=== PATIENT | female | born 1990 | race Two or more races ===

== ENCOUNTER 2021-10-21 16:37 | Outpatient (CLI) | payer OTHER, SELFPAY ==
--- NOTE | ~2021-10-21 | US_ITS ---
EXAMINATION: US OB /maternal detail DATE: 10/21/2021 17:51 INDICATION: anatomic survey. TECHNIQUE: Real-time ultrasound of the pelvis was performed. COMPARISON: None. FINDINGS: There is a single living fetus in vertex presentation. The placenta is posterior. heart rate i s 139 beats per minute (bpm). The amniotic fluid volume is subjectively normal. The following biometric data were obtained: Biparietal diameter (BPD): 6.0 cm; head circumference (HC): 22.6 cm; abdominal circumference (AC): 19 .0 cm; femur length (FL): 4.4 cm. These measurements are concordant. Estimated weight is 669 g +/- 100 g, which correlates with the 24th percentile when 02/06/22 is used as estimated date of delivery. As single measurements, these parameters are each equal to the following estimated gestational ages: BPD: 24 weeks 3 days. HC: 24 weeks 5 days. AC: 23 weeks 5 days. FL: 24 weeks 4 days. estimated gestational age based solely on measurements from this exam is 24 weeks 3 days +/- 1 weeks 5 days. The cerebral ventricles, cerebellum, cisterna magna, nuchal fold, and visualized portions of the spin e are normal. The heart is normal. The diaphragm, stomach, kidneys, and bladder are normal. There are two umbilical arteries to yield a 3-vessel cord. The cord insertion is normal. IMPRESSION: 1. Single living fetus in vertex presentation. 2. Estimated weight is 669 g +/- 100 g, which correlates with the 24th percentile when 02/06/22 is used as estimated date of delivery. 3. Normal anatomic survey. Reviewed, dictated and finalized at location E. CHECK SCALER IMPRESSION: 1. Single living fetus in vertex presentation. 2. Estimated weight is 669 g +/- 100 g, which correlates with the 24th p ercentile when 02/06/22 is used as estimated date of delivery. 3. Normal anatomic survey.
== END 2021-10-21 16:38 | disposition home or self-care (01) ==
PROVIDERS: Visit Provider Obstetrics & Gynecology
DX: Z36.9 Encounter for antenatal screening, unspecified (principal); Z3A.24 24 weeks gestation of pregnancy
CPT/HCPCS: 76805

== ENCOUNTER 2022-02-01 02:55 | Inpatient (IN) | payer OTHER, SELFPAY ==
[2022-02-01] VITALS (96 sets, daily range): BP systolic 90–134; BP diastolic 51–91; PULSE 56–170; RESP 16; TEMP 35.9–36.7; O2SAT 77–100
[2022-02-01 08:40] LABS: Basophils Percent Auto 0.3 % (0.2-1.2); Hematocrit 40.5 % (37.0-47.0); Hemoglobin 13.4 g/dL (12.0-15.0); Immature Granulocyte Absolute 0.04 K/mm3 (0.00-0.031); Immature Granulocyte Percent A 0.4 % (0-0.5); Lymphocytes Absolute Auto 1.01 K/mm3 (0.9-3.2); Mean Corpuscular HGB Conc 33.1 g/dl (32-36); Mean Corpuscular Volume 84.6 fl (80-100); Mean Platelet Volume 9.2 fl (7.4-10.4); Monocytes Absolute Auto 0.3 K/mm3 (0.1-0.6); Monocytes Percent Auto 2.6 % (2.6-8.5); Neutrophils Absolute Auto 8.8 K/mm3 (1.3-6.7); Neutrophils Percent Auto 86.7 % (45.5-73.1); Platelet Count Result 201 k/mm3 (150-375); Red Blood Count 4.79 M/mm3 (4.2-5.4); Red Cell Distribution Width 13.9 % (11.5-14.5); White Blood Count 10.1 K/mm3 (4.5-10.0)
--- NOTE | 2022-02-01 08:50 | LDADM ---
This patient, Tye Prajapati, was admitted to Labor/Delivery/Recovery 107 on 02/01/22 at 02:55. Plans for labor, pain management and were discussed with patient. Patient/family oriented to hospital policies and general routines including ID bracelet, bed and alarms, visiting hours, pain management, procedures, bathroom and other care routines, personal items, smoking policy, room service/diet and guest tray routines, security routines, and visiting hours. Patient/Family are encouraged to report perceived risks to care and to ask questions if they do not understand what they are told or what they should do. See OBIX for further documentation.
[2022-02-01] MEDS: LACTATED RINGERS 1,000 ML 125 ML IV CONT ×2 (09:00→09:47)
--- NOTE | 2022-02-01 09:34 | WPDANESEPPF ---
Anes - Initial Pre Proc Eval Procedure: labor epidural Date/Time: 02/01/22 09:34 Surgeon: Robby Appiah MD Pre Op Diagnosis: labor pain Pre Op Diagnosis: Labor Patient Data Age: 31 Gender: F Height: 1.6 m Weight: 77 kg Last Vital Signs Pulse 69 02/01/22 09:33 BP 112/63 02/01/22 09:33 Pulse Ox 100 02/01/22 09:30 O2 Del Method Room Air 02/01/22 08:49 Allergies Allergy/AdvReac Type Severity Reaction Status Date / Time No Known Allergies Allergy Verified 01/16/22 12:56 Home Medications Medication Instructions Recorded Confirmed Type vit no.95-ferrous 1 tablet PO DAILY 01/16/22 02/01/22 History fumarate 28 mg-folic acid 800 mcg tablet () sertraline 50 mg tablet 50 mg PO DAILY 01/16/22 02/01/22 History Laboratory Tests 02/01/22 02/01/22 02/01/22 08:33 08:33 08:33 WBC 10.1 K/mm3 H K/mm3 (4.5-10.0) RBC 4.79 M/mm3 M/mm3 (4.2-5.4) Hgb 13.4 g/dL g/dL (12.0-15.0) Hct 40.5 % % (37.0-47.0) MCV 84.6 fl fl (80-100) MCH 28.0 pg pg (26-34) MCHC 33.1 g/dl g/dl (32-36) RDW 13.9 % % (11.5-14.5) Plt Count 201 k/mm3 k/mm3 (150-375) MPV 9.2 fl fl (7.4-10.4) Immature Gran % (Auto) 0.4 % % (0-0.5) Neut % (Auto) 86.7 % H % (45.5-73.1) Lymph % (Auto) 10.0 % L % (18.3-44.2) [place] % (Auto) 2.6 % % (2.6-8.5) Eos % (Auto) 0.0 % % (0-4.4) Baso % (Auto) 0.3 % % (0.2-1.2) Lymph # (Auto) 1.01 K/mm3 K/mm3 (0.9-3.2) [place] # (Auto) 0.3 K/mm3 K/mm3 (0.1-0.6) Eos # (Auto) 0.0 K/mm3 K/mm3 (0-0.3) Baso # (Auto) 0.0 K/mm3 K/mm3 (0.0-0.1) Abs Immat Gran (auto) 0.04 K/mm3 H K/mm3 (0.00-0.031) Absolute Neuts (auto) 8.8 K/mm3 H K/mm3 (1.3-6.7) Absolute Nucleated RBC 0.0 K/mm3 K/mm3 (0.0-0.012) Nucleated RBC % 0.0 % % (0.0-0.2) RPR Pending Blood Type A Positive Antibody Screen Pending Patient hx anesthesia problems: none Family hx anesthesia problems: none Results Review: All pre-operative results and documents have been reviewed as part of the pre-operative evaluation. FORMERLY [facility], [facility] Family History Family History (Updated 01/16/22 @ 12:54 by Taryn Covington RN) Mother Heart failure Diabetes mellitus Hypertension Father Diabetes mellitus Hypertension Social History Social History Smoking status: Never smoker Substance use: never Spiritual care concerns: No Anes - Eval Final PreProcedure Day of Procedure 02/01/22 09:34 Patient weight: obese ASA classification: II Anesthetic plan: proceed Anesthesia type and monitoring: regional epidural and standard monitoring Results Review: All pre-operative results and documents have been reviewed as part of the pre-operative evaluation. Informed Consent: The patient's anesthetic plan and its attendant risks and benefits were discussed with the patient/family/POA. Questions were solicited and answers provided to the satisfaction of the patient/family/POA.
--- NOTE | 2022-02-01 12:16 | WPDOBADMIT ---
Obstetrics - Admit Note Admission Note: record reviewed. Additions to the history and/or subsequent changes in the physical findings follow. 31 y/o at 39 2/7 weeks here with contractions. GBS neg. Labor diagnosed. She is now comfortable with epidural. AVSS NST reactive TOCO: contractions every 6-7 min ABD soft, nontender, gravid EXT nontender Cervix 6-7/90/-1. AROM with meconium-stained fluid. A: IUP at term with labor. P: Augment labor as needed. Anticipate . Nursery aware of meconium.
[2022-02-01] MEDS: OXYTOCIN 30 UNITS/NS 500 ML 30 UNITS/500 ML BAG IV CONT (12:44)
--- NOTE | 2022-02-01 13:54 | PM.OBPRVD ---
OB - Delivery Note Procedure Delivery date: 02/01/22 Procedure: Induction method: None Delivery augmentation: Pitocin Delivery monitor: External FHT and External Uterine Route of delivery: Laceration Description: Perineal - 2nd Degree Delivery repair: vicryl (3-0) Specimen: Yes (cord blood) Quantitative Blood Loss (ml): 220 Anesthesia type: Epidural Disposition: PACU Complications: None Narrative: 31 y/o at 39 2/7 weeks gestation who presented to the hospital with contractions. Labor was diagnosed. Amniotomy was performed with return of meconium-stained fluid. Oxytocin was administered intravenously for labor augmentation. She received an epidural for pain control. Her labor progressed and her cervix dilated completely. She pushed with good effort and delivered the 's head to the perineum, followed by the body. The nose and mouth were bulb suctioned. After a delay, the cord was clamped and cut. The infant was handed off the field. Cord blood was collected. The placenta delivered spontaneously and was grossly normal in appearance. The usual 3 vessel cord was noted. A second degree midline perineal laceration was sustained. This was reapproximated using 3 0 Vicryl in the usual layered fashion. Excellent hemostasis resulted as did excellent reapproximation of the normal anatomy. Needle and instrument counts were correct. The patient was taken to recovery room in stable condition. The infant went to the nursery in stable condition. I was present and scrubbed for the entire delivery. [place] Baby Date of : 02/01/22 Time of : 13:28 Weeks of gestation at delivery: 39 gender: Female Weight (pounds): 6 Weight (ounces): 11 presentation: vertex position: Left Occiput Anterior Placenta delivery description: Spontaneous and Normal Configuration Cord Vessel Description: 3 Vessels, Clamped/Cut and Delayed Cord Clamping score one minute: 9 score five minutes: 9
[2022-02-01] MEDS: OXYTOCIN 30 UNITS/NS 500 ML 30 UNITS/500 ML BAG 125 UNITS IV CONT (14:08)
[2022-02-01 14:32] LABS: Rapid Plasma Reagin Non-Reactive (NonReactive)
[2022-02-01] MEDS: WITCH HAZEL 40 PADS 1 PAD TOPICAL (17:15)
[2022-02-01] MEDS: ACETAMINOPHEN 325 MG TABLET 650 MG PO (19:01)
[2022-02-01] MEDS: IBUPROFEN 600 MG TABLET PO (23:56)
[2022-02-02] VITALS: BP 114/79; PULSE 64; RESP 16; TEMP 36.6; O2SAT 97
[2022-02-02 04:34] VITALS: BP 104/69; PULSE 62; RESP 16; TEMP 36.7; O2SAT 97
[2022-02-02 05:23] LABS: Hematocrit 34.5 % (37.0-47.0); Hemoglobin 11.5 g/dL (12.0-15.0)
[2022-02-02 08:00] VITALS: BP 107/68; PULSE 68; RESP 18; TEMP 36.2; O2SAT 100
[2022-02-02] MEDS: BENZOCAINE 20% AER SPR (*SP) 56 GM CAN 1 SPRAY TOPICAL (08:15)
[2022-02-02] MEDS: MULTIVIT/MIN/PREN/FOL AC/IRON TABLET 1 TAB PO (08:15)
[2022-02-02] MEDS: POLYSACCHARIDE IRON COMPLEX 150 MG CAPSULE PO (08:15)
[2022-02-02] MEDS: SERTRALINE HCL 50 MG TABLET PO (08:15)
[2022-02-02] MEDS: WITCH HAZEL 40 PADS 1 PAD TOPICAL (08:15)
[2022-02-02] MEDS: DOCUSATE SODIUM 100 MG CAPSULE PO (08:15)
[2022-02-02] MEDS: IBUPROFEN 600 MG TABLET PO ×2 (08:16→14:55)
--- NOTE | 2022-02-02 08:33 | PM.OBPNVD ---
OB - PN: Subj Subjective Date/time seen: 02/02/22 08:33 Narrative: Pain OK. Would like to go home. AVSS ABD soft, nontender, fundus firm EXT nontender A: PPD#1, doing well. P: Home to f/u 6 weeks. OB - PN: Obj Data Labs CBC & Chem 7: 02/02/22 04:28 Labs: Laboratory Results - last 24 hr 02/01/22 02/01/22 02/01/22 08:33 08:33 08:33 WBC 10.1 H RBC 4.79 Hgb 13.4 Hct 40.5 MCV 84.6 MCH 28.0 MCHC 33.1 RDW 13.9 Plt Count 201 MPV 9.2 Immature Gran % (Auto) 0.4 Neut % (Auto) 86.7 H Lymph % (Auto) 10.0 L [place] % (Auto) 2.6 Eos % (Auto) 0.0 Baso % (Auto) 0.3 Lymph # (Auto) 1.01 [place] # (Auto) 0.3 Eos # (Auto) 0.0 Baso # (Auto) 0.0 Abs Immat Gran (auto) 0.04 H Absolute Neuts (auto) 8.8 H Absolute Nucleated RBC 0.0 Nucleated RBC % 0.0 RPR Non-reactive Blood Type A Positive Antibody Screen Negative 02/02/22 04:28 WBC RBC Hgb 11.5 L Hct 34.5 L MCV MCH MCHC RDW Plt Count MPV Immature Gran % (Auto) Neut % (Auto) Lymph % (Auto) [place] % (Auto) Eos % (Auto) Baso % (Auto) Lymph # (Auto) [place] # (Auto) Eos # (Auto) Baso # (Auto) Abs Immat Gran (auto) Absolute Neuts (auto) Absolute Nucleated RBC Nucleated RBC % RPR Blood Type Antibody Screen
--- NOTE | 2022-02-02 08:56 | PM.OBDSVD ---
DS: Admitting Diagnosis Discharge Date 02/02/22 Admitting Diagnosis IUP at 39 2/7 weeks Labor DS: Discharge Diagnosis Discharge Diagnosis (1) (normal spontaneous vaginal delivery): Code(s): O80 - Encounter for full-term uncomplicated delivery Status: Acute OB - DS: Summary OB Procedures : None OB Procedures Intrapartum: Spontaneous Vag Delivery OB Procedures: : None Peripartum Data Laceration Description: Perineal - 2nd Degree complications: none DS: Data Data Completed and Pending Pending studies at discharge: Pending at discharge 02/01/22 13:31 Surgical [PTH] Routine Labs on day of discharge: Labs from last 24 hours 02/02/22 02/01/22 02/01/22 04:28 08:33 08:33 Hgb 11.5 L Hct 34.5 L RPR Non-reactive Blood Type A Positive Antibody Screen Negative Discharge Plan Discharge Attending physician on discharge: Robby Appiah Discharging Clinician: Robby Appiah Patient Disposition: Home, Self-Care Activity: pelvic rest Diet: regular Discharge Instructions: Call or return if temperature above 100.4? F, increased abdominal pain, increased vaginal bleeding or any new problems. Stand Alone Forms: General Discharge Information Follow-up/Referrals: Robby Appiah MD [Physician] - 6 Weeks Discharge Medications: New ibuprofen 600 mg tablet 600 mg PO Q6H PRN (Reason: cramps) Qty: 30 0RF Continued sertraline 50 mg Tablet 50 mg PO DAILY PNV cmb#95-ferrous fumarate-FA [] 28 mg iron- 800 mcg Tablet 1 tablet PO DAILY Date of admission: 02/01/22 02:55 Primary Care Provider: UNKNOWN,DOCTOR Admitting Provider: Robby Appiah Attending physician on admission: Robby Appiah Condition: Stable
--- NOTE | 2022-02-02 09:23 | WPDANLDPN2 ---
Anes-Prog Note L&D Date/Time: 02/02/22 09:23 Comfortable throughout: labor and delivery Neuraxial method: epidural Epidural/Spinal procedure site: clean & non-tender Neuro status: Neuro function grossly intact. Cardiovascular status: normal Respiratory status: normal Airway patency: baseline Mental status: baseline Post-Op hydration status: normal Vital Signs: Last Vital Signs Temp 36.7 C 02/02/22 04:34 Pulse 62 02/02/22 04:34 Resp 16 02/02/22 04:34 BP 104/69 02/02/22 04:34 Pulse Ox 97 02/02/22 04:34 O2 Del Method Room Air 02/01/22 18:55 Pain score (VAS): 09/19 I/O: Intake & Output 02/01/22 02/02/22 02/02/22 23:59 07:59 15:59 Intake Total 1480 Output Total 255 Balance 1225 Post-procedural complaints: none Patient feedback: Patient satisfied with anesthetic care.
--- NOTE | 2022-02-02 10:00 | PC.NURSE ---
Patient viewed the discharge video Mother & Baby Care, The First Two Weeks . Patient was given the opportunity and encouraged to ask questions. Patient verbalized understanding of information shared and has been given the mother/baby guide for home reference.
[2022-02-02 11:54] VITALS: BP 115/68; PULSE 68; RESP 18; TEMP 36.3; O2SAT 100
--- NOTE | 2022-02-02 15:22 | PC.NURSE ---
1150 - Mother led the conversation with her experience and plan to feed her so far and her ability to independently latch optimally without discomfort. Reminded parents to use good handwashing technique to prevent infection. Mother is feeding appropriately for growth of infant and understands stimulating to eat if needed. has had appropriate feedings in the last 24 hours meets the outcomes for weight, output and jaundice at this time. Mother states she is confident to continue effectively her infant at home or when to call for assistance and denies any additional assistance or education at this time. Reinforced understanding of milk production, transition of milk, signs of adequate intake, prevention/relief of engorgement, responsive after visualizing feeding cues, the different methods of stimulating to breastfeed 2-3 hours after the start of the last feeding, community resources, medication information reviewed per [employer] and when to call a provider using the resource of the mom and baby guide/[facility] website. Mother voiced understanding of the education shared. Reported to the primary RN. [id number] [phone] [id number] RN called into the room for a latch assessment. Mother verbalizes she is able to independently latch infant with appropriate positioning/alignment. She denies any nipple discomfort and is responsively . is currently meeting outcomes for weight, output, jaundice and feeding frequencies of 8-12 times in 24 hours. Assisted mother with to the right breast using football hold. Reviewed milk production, transition of milk, signs of adequate intake, prevention/relief of engorgement, responsive after visualizing feeding cues, the different methods of stimulating infant to breastfeed 2-3 hours after the start of the last feeding, big open wide gape, suck/swallow visuals and handout for latching. Mother declines any additional assistance/education at this time. Mother is encouraged to call for assistance if her infant doesn?t latch or there is discomfort with latching. Mother voiced understanding of information shared and mom and baby guide reviewed for additional resource information . Reported to the primary RN.
--- NOTE | 2022-02-02 17:05 | PC.NURSE ---
Self care and infant care discharge instructions given including follow up visit date and time. No questions or concerns voiced. Very pleasant and cooperative. FOB at side.
[2022-02-03 08:47] VITALS: BP 118/77; PULSE 68; RESP 16; TEMP 37.5; O2SAT 99
== END 2022-02-02 17:08 | disposition home or self-care (01) | DRG 807 ==
LOC: ANHLDR 08:08 → ANHOB2 17:39
PROVIDERS: Admitting Provider Obstetrics & Gynecology; Visit Provider Obstetrics & Gynecology
DX: O77.0 Labor and delivery complicated by meconium in amniotic fluid (principal); Z37.0 Single live birth; O70.1 Second degree perineal laceration during delivery; O76 Abnormality in fetal heart rate and rhythm complicating labor and delivery; Z3A.39 39 weeks gestation of pregnancy
CPT/HCPCS: 36415; 85014; 85018; 85025; 86592; 86850; 86900; 86901; 88307; A9270; J2590; J2795; J7120